=== PATIENT | male | born 1985 | race Caucasian/White ===

== ENCOUNTER 2020-06-15 12:59 | Outpatient (REF) | payer BC, SELFPAY ==
--- NOTE | ~2020-06-15 | US_ITS ---
EXAMINATION: US SCROTUM CLINICAL INFORMATION: Right testicular pain. COMPARISON: Previous exam most recent November 2010 TECHNIQUE: A sonogram of the scrotum was performed assessing lainez-scale appearance and color Doppler flow. Spectral Doppler analysis of the arterial and venous flow were performed in the testes bilaterally. FINDINGS: RIGHT: Right testicle measures 5.8 x 2.8 x 3.7 cm, volume 31 mL. No focal testicular parenchymal lesions are visualized. Spectral Doppler analysis of the arterial and venous flow is normal in the right testis. Right epididymal head is normal in size. There is an 8 x 6.6 cm right epididymal head cyst. No right hydrocele or varicocele is seen. Right epididymal Doppler flow is normal. LEFT: Left testicle measures 5.6 x 2.6 x 3.6 cm, volume 27 mL. No focal testicular parenchymal lesions are visualized. Spectral Doppler analysis of the arterial and venous flow is normal in the left testis. Left epididymal head is normal in size. No left varicocele is seen. There is a small left hydrocele. Left epididymal Doppler flow is normal. US/US scrotum IMPRESSION: Small right epididymal head cyst. Small left hydrocele.
== END 2020-06-15 13:00 | disposition home or self-care (01) ==
LOC: HO.HMGCX 12:59
PROVIDERS: PCP Internal Medicine; Visit Provider Internal Medicine
DX: N50.811 Right testicular pain (principal)
CPT/HCPCS: 76870

== ENCOUNTER → 2020-10-09 15:09 | Outpatient (BNVA) | payer SELFPAY | PROVIDERS: PCP Internal Medicine; Visit Provider Physician Assistant | DX: Z02.79 Encounter for issue of other medical certificate (principal) ==

== ENCOUNTER 2021-12-06 18:28 | Emergency (ER) | payer OTHER, SELFPAY ==
--- NOTE | ~2021-12-06 | XR_ITS ---
EXAMINATION: XR ANKLE, RIGHT CLINICAL INFORMATION: Pain and swelling COMPARISON: None TECHNIQUE: AP, lateral, and mortise views of the right ankle. FINDINGS: There is an oblique fracture of the distal fibular diaphysis. Slight posterior displacement of the distal fragment. Ossification seen in the soft tissues posterior to the ankle. Ankle mortise is congruent with degenerative change along the mortise. Small joint effusion. Plantar heel spur. XR/XR ankle RT min 3V IMPRESSION: Oblique distal fibular diaphyseal fracture with minimal posterior displacement of the distal fragment.
--- NOTE | ~2021-12-06 | XR_ITS ---
EXAMINATION: XR KNEE, RIGHT XR TIBIA/FIBULA, RIGHT CLINICAL INFORMATION: Pain. Fracture. COMPARISON: Ankle radiographs from today. TECHNIQUE: 4 views of the right knee. 2 views of the right tibia/fibula. FINDINGS: Right knee: No fracture or subluxation. Compartmental joint spaces are maintained. No joint effusion. The soft tissues are unremarkable. Right tibia/fibula: The distal fibular fracture is partially visualized. No fracture seen at the proximal to mid aspect of the right tibia or fibula. The soft tissues are unremarkable. XR/XR knee RT 3V IMPRESSION: No fracture or malalignment of the right knee. Distal fibular fracture partially included in the [id number] of this study. There are no more proximal fractures of the right tibia or fibula.
--- NOTE | ~2021-12-06 | XR_ITS ---
EXAMINATION: XR KNEE, RIGHT XR TIBIA/FIBULA, RIGHT CLINICAL INFORMATION: Pain. Fracture. COMPARISON: Ankle radiographs from today. TECHNIQUE: 4 views of the right knee. 2 views of the right tibia/fibula. FINDINGS: Right knee: No fracture or subluxation. Compartmental joint spaces are maintained. No joint effusion. The soft tissues are unremarkable. Right tibia/fibula: The distal fibular fracture is partially visualized. No fracture seen at the proximal to mid aspect of the right tibia or fibula. The soft tissues are unremarkable. XR/XR tibia fibula RT 2V IMPRESSION: No fracture or malalignment of the right knee. Distal fibular fracture partially included in the [id number]-ww-[id number] of this study. There are no more proximal fractures of the right tibia or fibula.
[2021-12-06 18:31] VITALS: BP 147/97; PULSE 96; RESP 18; TEMP 36.4; O2SAT 98; BMI 35.6
--- NOTE | 2021-12-06 19:16 | ED.LOWEXIN ---
HPI - Extremity Injury (Lower) General Chief Complaint: Extremity Injury, Lower Stated Complaint: R ankle broken? Time Seen by Provider: 12/06/21 19:13 Source: patient Mode of arrival: ambulatory History of Present Illness HPI Narrative: 35-year-old male with no significant past medical history presenting to the ED complaining of right ankle pain and swelling s/p mechanical slip and fall off skateboard DATA MIGRATION CONSULTANT. States felt ankle pop, was deformed and popped back into place. Patient did ambulate on extremity after incident. Denies head trauma or LOC. Denies injury to the area, numbness, tingling, weakness MD complaint: ankle injury Onset (ago): hour(s) Related Data Previous Rx's Medication Instructions Recorded hydrocodone 5 mg-acetaminophen 325 1 tab PO Q8H PRN pain, severe 3 12/06/21 mg tablet days #9 tabs ibuprofen 800 mg tablet 800 mg PO Q8H PRN pain #14 tabs 12/06/21 Allergies Allergy/AdvReac Type Severity Reaction Status Date / Time No Known Allergies Allergy Unverified 12/01/19 15:36 Review of Systems Review of Systems: Constitutional: No Weight loss, No Fever, No Chills ENT/Mouth: No Ear Pain, No Nasal Congestion, No sore throat, No Rhinorrhea, No Swallowing Difficulty Cardiovascular: No Chest Pain, No SOB Respiratory: No Cough, No Sputum Gastrointestinal: No Nausea, No Vomiting, No Diarrhea, No Constipation, No Abdominal pain Genitourinary: No Dysuria, No Urinary Frequency, No Hematuria, No Urgency, No Flank Pain Musculoskeletal: + joint pain, No Myalgias, + Joint Swelling Skin: No Skin Lesions, No rash Neuro: No Weakness, No Numbness, No Paresthesias Yes all other systems are reviewed and are negative Constitutional: Constitutional: Reports as per [facility] Past Medical History Attestation statement: The following information was validated with the patient. Social History Social History Advance Directives: No Advance Directives Information Provided: No Physical Exam Vital Signs: Vital Signs: Last Vital Signs Temp 97.6 F 12/06/21 18:31 Pulse 96 12/06/21 18:31 Resp 18 12/06/21 18:31 BP 147/97 H 12/06/21 18:31 Pulse Ox 98 12/06/21 18:31 O2 Del Method 12/06/21 18:31 BMI result Body Mass Index 35.6 Const: General: cooperative, healthy appearing and no acute distress Orientation/consciousness: patient oriented x3 Limitations: no limitations HEENT: Head: Yes normal to inspection and Yes atraumatic Ears: hearing grossly normal bilaterally General nose exam: Normal external nose present Face and sinus: Yes normal facial exam Eyes: General: appearance normal, both eyes and all related structures EOM: EOMs intact bilaterally Neck: Neck: Yes normal visual inspection and Yes no meningeal signs Resp: Effort & Inspection: normal respiratory effort and no respiratory distress Cardio: Rate: regular rate Heart sounds: S1 normal heart sound present and S2 normal heart sound present Peripheral pulses: popliteal pulses present Skin: Rashes: no rashes Wounds: no wounds Neuro: General: patient oriented x3, tone normal and no meningeal signs Gait exam (Neuro): Normal gait present Extrem: Other: Right knee/proximal tib-fib nontender. Right ankle wit/distal fibula with noted swelling. + diffusely tender to palpation. No appreciable deformity. No open wound. Full range of motion intact to knee, ankle, and toes, sensation intact to light touch. Neurovascular intact Course Course Course Narrative: XR ankle RT min 3V IMPRESSION: Oblique distal fibular diaphyseal fracture with minimal posterior displacement of the distal fragment. XR tibia fibula RT 2V/XR knee RT 3V IMPRESSION: No fracture or malalignment of the right knee. ? Distal fibular fracture partially included in the [id number] of this study. There are no more proximal fractures of the right tibia or fibula.? >> patient placed in posterior short-leg with sugar-tong and supplied with crutches to be nonweightbearing and follow up with Orthopedics MDM - Extremity Injury (Lower) MDM Narrative Medical decision making narrative: 35-year-old male with no significant past medical history presenting to the ED complaining of right ankle pain and swelling s/p mechanical slip and fall off skateboard DATA MIGRATION CONSULTANT. On exam vital signs stable, NAD, nontoxic appearing, physical exam as above. Concern for fracture versus sprain Plan: X-rays, pain control Differential Diagnosis Differential diagnosis: Likely ankle sprain and strain, fracture of toe and ankle fracture Medical Records Attestation: I reviewed the patient's medical records. Lab Data Attestation: I reviewed the patient's lab results. Procedures Orthopedic Splinting/Casting Injury #1: Side: right Lower Extremity Injury Location: ankle Lower Extremity Immobilizer: posterior splint and stirrup splint Other Orthopedic Equipment: crutches Discharge Plan Discharge Clinical Impression: Fracture of distal end of right fibula Qualifiers: Encounter type: initial encounter Fracture type: closed Patient Disposition: Home, Self-Care Instructions: Leg Fracture (ED) Additional Instructions: You a distal fibular fracture that is partially displaced KEEP SPLINT ON, DRY, AND CLEAN. DO NOT BEAR ANY WEIGHT ON YOUR RIGHT LOWER EXTREMITY. USE CRUTCHES You need to follow-up with orthopedics. If your toes become numb, increasingly swollen, discolored, or pain becomes unbearable remove splint and return to the ED immediately You should take Tylenol and Motrin at home for pain. Additionally Palmer as an opiate pain medication, take only when pain is severe for the next 3 days. Be aware Palmer has Tylenol mixed in do not exceed 4 g of Tylenol in 1 day Prescriptions: New hydrocodone-acetaminophen 5-325 mg tablet 1 tab PO Q8H PRN (Reason: pain, severe) 3 Days Qty: 9 0RF Rx Instructions: Partial Fill upon patient request. ibuprofen 800 mg tablet 800 mg PO Q8H PRN (Reason: pain) Qty: 14 0RF Referrals: [facility] [place] [facility] [Provider Group] - 1 week Stand Alone Forms: Work/School Release
[2021-12-06] MEDS: oxyCODONE HCl Immed Release 5 MG TABLET PO (20:28)
--- NOTE | 2021-12-06 20:33 | PC.NURSE ---
Pt. in room resting in bed, pending splint for his ankle. Medicated with oxy per may for pain level 09/22.
== END 2021-12-06 22:03 | disposition home or self-care (01) ==
PROVIDERS: Emergency Provider Emergency Medicine; PCP Internal Medicine
DX: S82.831A Other fracture of upper and lower end of right fibula, initial encounter for closed fracture (principal); V00.131A Fall from skateboard, initial encounter; Y93.51 Activity, roller skating (inline) and skateboarding; Y92.9 Unspecified place or not applicable; Y99.9 Unspecified external cause status
CPT/HCPCS: 29515; 73562; 73590; 73610; 99283; 99284

== ENCOUNTER → 2022-04-21 15:23 | Outpatient (BNVA) | payer OTHER, SELFPAY | PROVIDERS: PCP Internal Medicine; Referring Provider Internal Medicine; Visit Provider Surgery | DX: Z13.89 Encounter for screening for other disorder (principal) ==

== ENCOUNTER 2022-05-15 06:01 | Day surgery (SDC) | payer OTHER, SELFPAY ==
[2022-05-12 11:42] VITALS: BMI 36.5
--- NOTE | 2022-05-14 11:09 | P.CONAN_ITS ---
Documented by User: Zahira Tanner NP 05/14/22 11:10 HPI - Anesthesia Eval Consult details Narrative: 36yo M for Hernia Repair Umbilical Laparoscopic with mesh PMFSH Active Problems Active Problems: All Active Problems (Updated 05/12/22 @ 11:41 by Genesis Siu RN) Umbilical hernia (Acute) Diastasis recti (Acute) BMI 36.0-36.9,adult (Acute) Past Medical History Medical History No pertinent past medical history Surgical History Surgical History History of hydrocelectomy History of open reduction and internal fixation (ORIF) procedure Social History Social History Household Members: Spouse and Children Housing: House Are you a primary special needs caregiver to a significant other at home: No Do you presently have visiting nurse or other home services: No Alcohol intake: current Alcohol intake frequency: holidays/special occasions only Patient Tobacco Use Status: Never used Tobacco Use of substances other than those prescribed or required for medical reasons: No Have you been hit, kicked, punched, or otherwise hurt by someone within the past year? If so, by whom?: No Are you DNR?: No Advance Directives: No Advance Directives Information Provided: Yes Advance Directives on File: No Recently lost weight without trying: No Eating poorly because of decreased appetite: No Nutrition Risks: No Nutritional Risk Current occupational status: employed Current occupation: Configuration Manager Meds Allergies Allergy/AdvReac Type Severity Reaction Status Date / Time No Known Allergies Allergy Verified 05/15/22 06:33 Home Medications Medication Instructions Recorded Confirmed Last Taken Type multivitamin 05/15/22 05/15/22 Unknown History Exam Exam Date and Time: May 14, 2022 1109 Height,Weight and Vital Signs: Height 6 ft 1 in Weight 125.645 kg Assessment and Plan Assessment Anesthesia Assessment: Chart Reviewed Documented by User: Moni Ibarra MD 05/15/22 08:53 [facility] Past Medical History Medical History No pertinent past medical history Family History Family history of problems with anesthesia: No Surgical History Surgical History History of hydrocelectomy History of open reduction and internal fixation (ORIF) procedure History of Problems with Anesthesia: No Social History Social History Household Members: Spouse and Children Housing: House Are you a primary special needs caregiver to a significant other at home: No Do you presently have visiting nurse or other home services: No Alcohol intake: current Alcohol intake frequency: holidays/special occasions only Patient Tobacco Use Status: Never used Tobacco Use of substances other than those prescribed or required for medical reasons: No Have you been hit, kicked, punched, or otherwise hurt by someone within the past year? If so, by whom?: No Are you DNR?: No Advance Directives: No Advance Directives Information Provided: Yes Advance Directives on File: No Recently lost weight without trying: No Eating poorly because of decreased appetite: No Nutrition Risks: No Nutritional Risk Current occupational status: employed Current occupation: Configuration Manager Meds Allergies Allergy/AdvReac Type Severity Reaction Status Date / Time No Known Allergies Allergy Verified 05/15/22 06:33 Home Medications Medication Instructions Recorded Confirmed Last Taken Type multivitamin 05/15/22 05/15/22 Unknown History Exam Airway Mallampati Class: I TM Dist: >3cm Neck ROM: Full Loose/Missing/Broken Teeth: No Heart: rr Lungs: cta Assessment and Plan Final Anesthetic Review Family History of Problems with Anesthesia: No History of Problems with Anesthesia: No NPO: Yes ASA Class: I Final Preanesthetic Review: No Changes in Pt Med Stat, Meds/Allgs Chart Reviewed, Consent Obtained/Reviewed and Anes Risks/Benef Reviewed Patient Risk: Low Procedure Risk: Low Anesthetic Plan Anesthetic Plan: GA and Agree w/ Assess. and Plan Disposition: Standard PACU
[2022-05-15] VITALS (9 sets, daily range): BP systolic 136–159; BP diastolic 80–100; PULSE 61–83; RESP 16–18; TEMP 36.6–36.8; O2SAT 94–100
[2022-05-15] MEDS: Lactated Ringers 1,000 ML 100 ML IVCONT (06:09)
--- NOTE | 2022-05-15 06:50 | PC.NURSE ---
Dr. Tom notified that patient stated congestion (audible) started two days ago. occasional cough. runny nose is clear. afebrile. LCTA. patient stated was covid positive approx. one month ago with mild symptoms. dr. tom to assess upon arrival.
--- NOTE | 2022-05-15 07:02 | W.PM.OPN ---
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 Options including observation of his hernia versus open or laparoscopic repair were reviewed. I recommended a laparoscopic repair with IPOM in reviewed the inherent risks of bleeding, infection, hernia recurrence if postoperative instructions are not followed or weight gain occurs, mesh complications that could require reoperation, urinary retention. The patient seemed understand. He wanted to proceed. Activity and work restrictions were also reviewed and apparently understood.] Procedure: [ The patient was identified in the preoperative holding area by myself and the operative site marked by me confirming a reducible umbilical hernia. 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 The operative field hair had been clipped in preop holding. The patient was again identified in the operating suite and placed supine on the table. See anesthesia notes for full details regarding anesthesia care and management. The patient was then widely prepped and draped in the usual manner using chlor[prep. An appropriate time-out was performed confirming the laparoscopic equipment, mesh, absorbable Tacker were all available. The patient's abdomen was accessed through a stab incision in the left upper quad using preemptive local. Veress needle was placed without incident, an appropriate drop test performed and used to obtain a pneumoperitoneum of 15 mmHg using carbon dioxide. Opening pressure was 7 mmHg. The abdomen was then accessed with a 5 mm/30 degree laparoscopic for a 5 mm optical trocar without incident through the anterior axillary line at the level of the umbilicus. I then inspected for evidence of injury from either the Veress needle or trocar and found none. The patient was positioned in gentle Trendelenburg position and one additional 5 mm trocars placed using preemptive local under direct laparoscopic vision in the patient's left lower quadrant and a 12 mm placed in the left upper quadrant. Laparoscopy confirmed umbilical hernia measuring 2.5 cm with viable properitoneal fat. Preperitoneal fat was dissected from the retrorectus fashion using a grasper and Endo scissors to allow placement of an Echo mesh. Hemostasis was obtained with electrocautery. Once the sac was reduced, the fascial defect was closed using an absorbable 0 V-Lock suture. Next, Echo mesh measuring 4x6' was inserted through the 12 mm trocar and deployed. A stab incision was made through the abdominal wall skin over the hernia, a suture passer used to grasp the blue inflation tube which was then delivered, cut and inflated. The mesh was oriented with overlap and absorbable tacks used to secure the mesh. The abdomen was then deflated to 10 mmHg, the bed return to neutral and trocars removed. The 12 mm fascia was closed 0 Polysorb suture and skin was closed with 4-0 Monocryl subcuticular sutures. The abdomen was then washed and dried, and Mastisol and Steri-Strips applied followed by Band-Aids. Patient tolerated the procedure well was sent to the recovery area in stable condition. All sponge and instrument counts were correct x2. At the patient's request, I contact his , Tanja at [phone] and apprised her by telephone of the procedure, pain management, bathing and activity restrictions. Instructions regarding activity and pain management were reviewed. Questions were answered.]
--- NOTE | 2022-05-15 07:02 | MHC.SHP ---
Pre-Procedural Eval Section A Date of Service: 05/15/22 The patient is an INPATIENT: No The History & Physical has been completed within 30 days and I have reviewed it.: Yes Section B Chief Complaint: Umbilical hernia without obstruction or gangrene Allergies: Allergies Allergy/AdvReac Type Severity Reaction Status Date / Time No Known Allergies Allergy Verified 05/15/22 06:33 Plan I have reviewed the history and physical and performed a pertinent physical examination on my patient. No changes have occurred unless specified. Time Spent With Patient Time: Total time managing care of this patient today ____ minutes.
--- NOTE | 2022-05-15 07:18 | PC.NURSE ---
Dr. Reddy updated regarding previous nurse note. okay to proceed. no interventions.
[2022-05-15] MEDS: ondansetron HCL 4 MG/2 ML VIAL IVPUSH (09:45)
[2022-05-15] MEDS: Ketorolac Tromethamine 30 MG/ML VIAL 15 MG IVPUSH (10:11)
== END 2022-05-15 11:37 ==
LOC: HO.SSS 06:02
PROVIDERS: PCP Internal Medicine; Visit Provider Surgery
PROC: 0WQF4ZZ Repair Abdominal Wall, Percutaneous Endoscopic Approach (ICD-10-PCS; CPT 49591; principal; 2022-05-15 07:30)
DX: K42.9 Umbilical hernia without obstruction or gangrene (principal); M62.08 Separation of muscle (nontraumatic), other site; R63.5 Abnormal weight gain; Z68.36 Body mass index [BMI] 36.0-36.9, adult
CPT/HCPCS: 49591; C1781; J0330; J0690; J1885; J2250; J2405; J2550; J3010

== ENCOUNTER → 2022-05-23 08:55 | Outpatient (BNVA) | payer OTHER, SELFPAY | PROVIDERS: PCP Internal Medicine; Visit Provider Surgery | DX: Z13.89 Encounter for screening for other disorder (principal) ==

== ENCOUNTER 2024-01-20 13:29 | Outpatient (REF) | payer OTHER, SELFPAY ==
--- NOTE | ~2024-01-20 | XR_ITS ---
EXAMINATION: XR CHEST CLINICAL INFORMATION: Acute bronchitis. COMPARISON: None available. TECHNIQUE: 2 views of the chest were obtained. FINDINGS: The lungs are clear. The cardiomediastinal silhouette is normal in size. There is no pleural effusion or pneumothorax. No acute osseous abnormality. XR/XR chest 2V IMPRESSION: No acute cardiopulmonary findings. Electronically signed by: Luis Mar MD 01/22/2024 09:30 AM [facility]
[2024-01-20 16:19] LABS: MANUAL DIFF FLAG NO
[2024-01-20 16:58] LABS: Alanine Aminotransferase 50 U/L (0-40); Albumin Level 4.6 g/dL (3.5-5.0); Alkaline Phosphatase 60 U/L (39-117); Anion Gap 15 (12-20); Aspartate Amino Transferase 94 U/L (5-37); Bilirubin Direct 0.2 mg/dL (0.0-0.5); Bilirubin Total 0.5 mg/dL (0.0-1.0); Blood Urea Nitrogen 14 mg/dL (9-16); Carbon Dioxide 26 mmol/L (22-29); Chloride 103 mmol/L (96-108); Estimated Glomerular Filt Rate > 60; Glucose Random 91 mg/dL (60-115); Potassium 4.5 mmol/L (3.3-5.1); Sodium 139 mmol/L (135-145); Total Protein 7.7 g/dL (6.5-8.0)
[2024-01-20 17:04] LABS: Basophils Percent Auto 0.5 % (0-2); Eosinophils Absolute Auto 0.3 X10*3/uL (0.0-0.4); Eosinophils Percent Auto 3.7 % (0-4); Hematocrit 42.5 % (42.0-52.0); Hemoglobin 14.4 g/dl (14.0-18.0); Imm Gran Abs Auto 0.07 X10*3/uL (0.00-0.03); Imm Gran Pct Auto 0.9 % (0.0-0.4); Lymphocytes Absolute Auto 1.8 X10*3/uL (1.2-4.9); Mean Corpuscular HGB Conc 33.9 g/dl (31.0-36.0); Mean Corpuscular Hemoglobin 28.7 pg (27.0-33.0); Mean Corpuscular Volume 84.8 fL (80.0-98.0); Mean Platelet Volume 9.5 fL (9.4-12.4); Monocytes Absolute Auto 0.4 X10*3/uL (0.1-1.2); Monocytes Percent Auto 5.6 % (2-11); Neutrophils Absolute Auto 5.2 x10*3/uL (2.0-8.3); Neutrophils Percent Auto 66.3 % (45-73); Platelet Count 331 X10*3/uL (160-400); Red Blood Count 5.01 X10*6/uL (4.60-5.80); Red Cell Distribution Width 12.8 % (11.0-16.0); White Blood Count 7.9 X10*3/uL (4.8-10.8)
== END 2024-01-20 13:30 | disposition home or self-care (01) ==
LOC: HO.HMGCX 13:29
PROVIDERS: PCP Internal Medicine; Visit Provider Internal Medicine
DX: J20.9 Acute bronchitis, unspecified (principal)
CPT/HCPCS: 36415; 71046; 80048; 80076; 85025